=== PATIENT | male | born 1965 | race Caucasian/White ===

== ENCOUNTER 2021-07-12 12:22 | Outpatient (CLI) | payer OTHER | END 2021-07-12 12:23 | disposition home or self-care (01) | LOC: CSHMRI 12:22 | PROVIDERS: ATTEND Nurse Practitioner Family | DX: M75.41 Impingement syndrome of right shoulder (principal); M75.121 Complete rotator cuff tear or rupture of right shoulder, not specified as traumatic; M62.511 Muscle wasting and atrophy, not elsewhere classified, right shoulder; S43.431A Superior glenoid labrum lesion of right shoulder, initial encounter; S46.211A Strain of muscle, fascia and tendon of other parts of biceps, right arm, initial encounter ==